=== PATIENT | female | born 1990 | race Caucasian/White ===

== ENCOUNTER 2022-10-31 19:00 | Inpatient (IN) | payer BC ==
[~2022-10-31 19:00] MED LIST: Bupivacaine 0.25% HCL 30 ML VIAL ONE
[2022-10-31] MEDS ORDERED: hydrALAZINE 20 MG/ML VIAL SLOW IVP PRN (20:26)
[2022-10-31] MEDS ORDERED: Ibuprofen 800 MG TAB PO PRN (20:26)
[2022-10-31] MEDS ORDERED: Promethazine HCl 25 MG/ML VIAL IM PRN (20:26)
[2022-10-31] MEDS ORDERED: fentaNYL 50 mcg/mL 1 mL Vial SLOW IVP PRN (20:26)
[2022-10-31] MEDS ORDERED: Ondansetron PF 4 MG/2 ML Vial IVP PRN (20:26)
[2022-10-31] MEDS ORDERED: HYDROcodone/Acetaminophen 5/325 mg Tablet PO PRN ×2 (20:26)
[2022-10-31] MEDS ORDERED: Lidocaine 1% (PF) 30 ML VIAL SC PRN (20:26)
[2022-10-31] MEDS ORDERED: Oxytocin 30 units/NS 500 ML 500 ML IV SCH ×3 (20:26)
[2022-10-31 20:27] VITALS: BMI 32.5
[2022-10-31] MEDS: Lactated Ringer's 1,000 ML IV SCH (20:30)
[2022-10-31] MEDS ORDERED: Misoprostol 100 MCG TAB VAG SCH ×2 (20:30)
[2022-10-31 21:07] LABS: Hematocrit 31.4 % (34.9-44.5); Hemoglobin 10.6 g/dL (12.0-15.5); Mean Corpuscular HGB CONC 33.8 g/dL (32.0-36.0); Mean Corpuscular Hemoglobin 30.9 pg (27.0-33.0); Mean Corpuscular Volume 91.5 fl (81.6-98.3); Mean Platelet Volume 11.3 fl (7.4-10.4); Platelet Count 212 10x3/uL (150-450); RBC Distribution Width 13.6 % (11.5-14.5); Red Blood Cell (RBC) Count 3.43 10x6/uL (3.90-5.03); White Blood Cell (WBC) Count 10.7 10x3/uL (3.5-10.5)
[2022-10-31 21:13] LABS: HBSAg Index 0.23 S/CO (0-0.99); Hep B Surf Ag - L&D Non-Reactive S/CO (NonReactive); Syphilis Antibody Nonreactive (Nonreactive); Syphilis Antibody Index 0.14 S/CO (<1.00 Non-Reactive)
[2022-11-01] MEDS ORDERED: fentaNYL/Ropivacaine Epidural 100 ML ONE (03:20)
[2022-11-01] MEDS ORDERED: Ondansetron PF 4 MG/2 ML Vial IVP PRN ×2 (03:53→10:00)
[2022-11-01] MEDS ORDERED: diphenhydrAMINE 50 MG/ML VIAL IVP PRN (03:53)
[2022-11-01] MEDS ORDERED: Lactated Ringer's 500 ML IV PRN (03:53)
[2022-11-01] MEDS ORDERED: Promethazine HCl 25 MG/ML VIAL IM PRN (03:53)
[2022-11-01] MEDS ORDERED: Moisturizing Cream (Eucerin) 113 GM JAR TOP PRN (03:53)
[2022-11-01] MEDS ORDERED: Acetaminophen 325 MG TAB PO PRN (03:53)
[2022-11-01] MEDS ORDERED: ePHEDrine Sulfate 50 MG/10 ML VIAL SLOW IVP PRN (03:53)
[2022-11-01] MEDS ORDERED: Naloxone HCl 0.4 mg/ml Vial IVP PRN ×2 (03:53)
[2022-11-01] MEDS ORDERED: fentaNYL 2 mcg/Ropivacaine 0.2% Epidural 100 ML CADD EPIDURAL SCH (04:00)
[2022-11-01] MEDS ORDERED: Communication Order-Pharmacy FS SCH (04:00)
[2022-11-01] MEDS: Lactated Ringer's 1,000 ML IV SCH (06:33)
[2022-11-01] MEDS ORDERED: Tranexamic Acid 1,000 MG/10 ML VIAL ONE (08:14)
[2022-11-01] MEDS ORDERED: Methylergonovine 0.2 MG/ML VIAL ONE (08:14)
[2022-11-01] MEDS ORDERED: Misoprostol 200 MCG TAB ONE (08:14)
[2022-11-01] MEDS ORDERED: HYDROcodone/Acetaminophen 5/325 mg Tablet PO PRN ×2 (10:00)
[2022-11-01] MEDS ORDERED: Bisacodyl 10 MG SUPP PR PRN (10:00)
[2022-11-01] MEDS ORDERED: Boostrix 0.5 ML (Tdap) VIAL (>/=7 yrs of age) IM ONE (10:00)
[2022-11-01] MEDS ORDERED: Milk Of Magnesia 30 ML UDCUP PO PRN (10:00)
[2022-11-01] MEDS ORDERED: diphenhydrAMINE 25 MG CAP PO PRN (10:00)
[2022-11-01] MEDS ORDERED: hydrALAZINE 20 MG/ML VIAL SLOW IVP PRN (10:00)
[2022-11-01] MEDS ORDERED: Lanolin Ointment 7 GM TUBE TOP PRN (10:00)
[2022-11-01] MEDS ORDERED: Preparation H Ointment 28 GM TUBE PR PRN (10:00)
[2022-11-01] MEDS ORDERED: Benzocaine-Menthol 82.5 ML CAN TOP PRN (10:00)
[2022-11-01] MEDS: Prenatal Vitamin 1 TAB PO SCH (11:16)
[2022-11-01] MEDS: Docusate 100 MG CAP PO SCH ×2 (11:16→21:53)
[2022-11-01] MEDS: Ibuprofen 800 MG TAB PO SCH ×2 (13:07→21:52)
[2022-11-01] MEDS: Ferrous Sulfate 325 MG TAB PO SCH (14:33)
[2022-11-02 04:10] LABS: Hematocrit 24.3 % (34.9-44.5); Hemoglobin 7.9 g/dL (12.0-15.5)
[2022-11-02] MEDS: Ibuprofen 800 MG TAB PO SCH ×2 (05:35→13:46)
[2022-11-02] MEDS: Ferrous Sulfate 325 MG TAB PO SCH ×2 (07:30→08:49)
[2022-11-02] MEDS: Prenatal Vitamin 1 TAB PO SCH (08:03)
[2022-11-02] MEDS: Docusate 100 MG CAP PO SCH (08:03)
[2022-11-02 08:06] VITALS: BP 98/55; TEMP 97.8
== END 2022-11-02 18:50 | disposition home or self-care (01) | DRG 806 ==
LOC: CSHLD 19:11 → CSHPP 11-01 10:40
PROVIDERS: ADMIT Obstetrics & Gynecology; ATTEND Obstetrics & Gynecology
PROC: 10E0XZZ Delivery of Products of Conception, External Approach (ICD-10-PCS; principal; 2022-11-01)
PROC: 0HQ9XZZ Repair Perineum Skin, External Approach (ICD-10-PCS; 2022-11-01)
PROC: 3E0334Z Introduction of Serum, Toxoid and Vaccine into Peripheral Vein, Percutaneous Approach (ICD-10-PCS; 2022-11-01)
PROC: 0UQMXZZ Repair Vulva, External Approach (ICD-10-PCS; 2022-11-01)
DX: O26.893 Other specified pregnancy related conditions, third trimester (principal); D62 Acute posthemorrhagic anemia; Z37.0 Single live birth; O72.1 Other immediate postpartum hemorrhage; O70.0 First degree perineal laceration during delivery; Z67.31 Type AB blood, Rh negative; Z3A.39 39 weeks gestation of pregnancy; O90.81 Anemia of the puerperium
CPT/HCPCS: 36415; 51702; 85014; 85018; 85027; 85461; 86780; 86850; 86900; 86901; 87340; 90384; 96372; J2210; J2405; J2590; J7120; S0020